=== PATIENT | female | born 1950 | race American Indian/Alaskan Native ===

== ENCOUNTER 2016-09-16 16:57 | Emergency (ER) | payer MEDICARE ==
[2016-09-16 17:20] VITALS: BP 154/81
--- NOTE | 2016-09-16 18:53 | Emergency Department Report ---
Chief Complaint: Abdominal Pain Stated Complaint: PAIN ON RIGHT SIDE Time Seen by Provider: 09/16/16 18:42 - HPI History of Present Illness: A 5-year-old female comes in for complaint of right lower abdominal pain and pelvic area that radiates to her back and legs with movement and this started on Saturday. Patient reports that she was picking up heavy dog food and that the only thing she can think of that may have caused this discomfort. Patient reports she was able to go to her rest of her shopping but the next day by accident evening path when she started having some pressure and pain in her right lower quadrant. Patient reports that she lay down she took some pain medicine pains decreased since decided the next morning she woke up pain was back. Patient even tried taking a hot shower which did not help either. - Exam Vital Signs: Vital Signs 09/16/16 17:16 Temperature 98.1 F Pulse Rate 80 Respiratory 17 Rate Blood Pressure 154/81 O2 Sat by Pulse 99 Oximetry Physical Exam: Patient is alert and oriented 3. Right lower quadrant tenderness with deep palpation patient has CVA tenderness on the right side. Extremities there is no edema noted. MSE screening note: Focused history and physical exam performed. Due to findings the following was ordered: CBC BMP urinalysis is been ordered. ED Disposition for MSE Condition: Stable Instructions: Abdominal Pain (ED)
[2016-09-16 19:52] LABS: Hematocrit 39.7 % (30.3-42.9); Hemoglobin 13.3 gm/dl (10.1-14.3); Mean Corpuscular HGB Conc 33 % (30-34); Mean Corpuscular Hemoglobin 27 pg (28-32); Mean Corpuscular Volume 80 fl (79-97); Platelet Count 188 K/mm3 (140-440); Red Blood Count 4.95 M/mm3 (3.65-5.03); Red Cell Distribution Width 16.8 % (13.2-15.2); White Blood Count 8.2 K/mm3 (4.5-11.0)
[2016-09-16 19:52] LABS: BUN/Creatinine Ratio 8.46; Chloride 101.1 mmol/L (98-107); Potassium 4.5 mmol/L (3.6-5.0)
--- NOTE | 2016-09-17 00:33 | Emergency Department Report ---
ED Abdominal Pain HPI - General Chief Complaint: Abdominal Pain Stated Complaint: PAIN ON RIGHT SIDE Time Seen by Provider: 09/16/16 18:42 Source: patient Mode of arrival: Ambulatory Limitations: No Limitations - History of Present Illness Initial Comments: 65-year-old female presents to the emergency department complaining of right sided abdominal pain for the past 2 days. Patient reports onset of pain after lifting heavy boxes of dog food after she went shopping. Patient describes aching pain that radiates around to her right lower back. Pain is worse with movement. She denies associated nausea, vomiting, diarrhea, dysuria, or hematuria. There are no other complaints. MD Complaint: abdominal pain -: Gradual, days(s) (2) Location: RLQ Radiation: back Migration to: no migration Severity scale (0 -10): 6 Quality: aching Consistency: constant Improves With: nothing Worsens With: movement Associated Symptoms: denies other symptoms - Related Data Home Medications Medication Instructions Recorded Confirmed Last Taken Aspirin [Aspirin TAB] 325 mg PO QDAY 05/11/13 08/18/15 1 Day Ago Clopidogrel [Plavix] 75 mg PO QDAY 05/11/13 08/18/15 1 Day Ago Insulin NPH, Human [NovoLIN N] 15 units SQ QAM 05/11/13 08/18/15 1 Day Ago Loratadine [Claritin RAPDIS] 10 mg PO QDAY 05/11/13 08/18/15 1 Day Ago Metoprolol [Lopressor TAB] 50 mg PO BID 05/11/13 08/18/15 1 Day Ago Sitagliptin Phosphate [Januvia] 50 mg PO QAM 05/11/13 08/18/15 1 Day Ago Insulin NPH, Human [NovoLIN N] 10 unit SQ QPM 08/18/15 08/18/15 1 Day Ago Lisinopril [Zestril TAB] 40 mg PO QDAY 08/18/15 08/18/15 1 Day Ago Previous Rx's Medication Instructions Recorded Last Taken Type HYDROcodone/APAP 5-325 [[place] 1 each PO Q6HR PRN #14 tablet 09/17/16 Unknown Rx 5/325] Nitrofurantoin [place]/M-Cryst 100 mg PO Q12HR #14 capsule 09/17/16 Unknown Rx [Macrobid CAP] Allergies Allergy/AdvReac Type Severity Reaction Status Date / Time atorvastatin calcium AdvReac Nausea Verified 09/16/16 17:12 [From Lipitor] rosuvastatin calcium AdvReac Nausea Verified 09/16/16 17:12 [From Crestor] ED Review of Systems ROS: Stated complaint: PAIN ON RIGHT SIDE Other details as noted in HPI Comment: All other systems reviewed and negative Gastrointestinal: abdominal pain ED Past Medical Hx - Past Medical History Previous Medical History?: Yes Hx Hypertension: Yes Hx CVA: No Hx Heart Attack/AMI: Yes Hx Congestive Heart Failure: Yes Hx Diabetes: Yes Hx Deep Vein Thrombosis: No Hx Pulmonary Embolism: No Hx GERD: Yes Hx Liver Disease: No Hx Renal Disease: No Hx Sickle Cell Disease: No Hx Arthritis: Yes Hx Headaches / Migraines: No Hx Seizures: No Hx Kidney Stones: No Hx Psychiatric Treatment: No Hx Asthma: Yes Hx COPD: Yes Hx Tuberculosis: No Hx Dementia: No Hx HIV: No Additional medical history: coronary artery disease - Surgical History Past Surgical History?: Yes Hx Coronary Stent: Yes (x1) Hx Open Heart Surgery: Yes (2013) Additional Surgical History: hysterectomy. bilateral hip replacement - Family History Family history: no significant - Social History Smoking Status: Never Smoker Substance Use Type: None - Medications Home Medications: Home Medications Medication Instructions Recorded Confirmed Last Taken Type Aspirin [Aspirin TAB] 325 mg PO QDAY 05/11/13 08/18/15 1 Day Ago History Clopidogrel [Plavix] 75 mg PO QDAY 05/11/13 08/18/15 1 Day Ago History Insulin NPH, Human [NovoLIN N] 15 units SQ QAM 05/11/13 08/18/15 1 Day Ago History Loratadine [Claritin RAPDIS] 10 mg PO QDAY 05/11/13 08/18/15 1 Day Ago History Metoprolol [Lopressor TAB] 50 mg PO BID 05/11/13 08/18/15 1 Day Ago History Sitagliptin Phosphate [Januvia] 50 mg PO QAM 05/11/13 08/18/15 1 Day Ago History Insulin NPH, Human [NovoLIN N] 10 unit SQ QPM 08/18/15 08/18/15 1 Day Ago History Lisinopril [Zestril TAB] 40 mg PO QDAY 08/18/15 08/18/15 1 Day Ago History HYDROcodone/APAP 5-325 [[place] 1 each PO Q6HR PRN #14 tablet 09/17/16 Unknown Rx 5/325] Nitrofurantoin [place]/M-Cryst 100 mg PO Q12HR #14 capsule 09/17/16 Unknown Rx [Macrobid CAP] ED Physical Exam - General Limitations: No Limitations General appearance: alert, in no apparent distress - Head Head exam: Present: atraumatic, normocephalic - Eye Eye exam: Present: normal appearance, PERRL, EOMI - ENT ENT exam: Present: normal exam, normal orophraynx, mucous membranes moist - Neck Neck exam: Present: normal inspection, full ROM. Absent: tenderness - Respiratory Respiratory exam: Present: normal lung sounds bilaterally. Absent: respiratory distress - Cardiovascular Cardiovascular Exam: Present: regular rate, normal rhythm, normal heart sounds - GI/Abdominal GI/Abdominal exam: Present: soft, tenderness (Mild tenderness to palpation in the right lower, lateral abdomen. No tenderness over McBurney's point.), normal bowel sounds. Absent: distended, guarding, rebound - Extremities Exam Extremities exam: Present: normal inspection, full ROM. Absent: tenderness - Back Exam Back exam: Present: normal inspection, full ROM. Absent: tenderness - Neurological Exam Neurological exam: Present: alert, oriented X3. Absent: motor sensory deficit - Skin Skin exam: Present: warm, dry, intact ED Course Vital Signs 09/16/16 17:16 Temperature 98.1 F Pulse Rate 80 Respiratory 17 Rate Blood Pressure 154/81 O2 Sat by Pulse 99 Oximetry ED Medical Decision Making - Lab Data Result diagrams: 09/16/16 19:18 09/16/16 19:14 - Medical Decision Making Lab results reviewed and discussed with the patient. Patient will be discharged home with prescriptions for pain medication and oral anti-biotics. - Differential Diagnosis abdominal wall strain Critical care attestation.: If time is entered above; I have spent that time in minutes in the direct care of this critically ill patient, excluding procedure time. ED Disposition Clinical Impression: Abdominal wall strain Qualifiers: Encounter type: initial encounter Qualified Code(s): S39.011A - Strain of muscle, fascia and tendon of abdomen, initial encounter UTI (urinary tract infection) Qualifiers: Urinary tract infection type: acute cystitis Hematuria presence: without hematuria Qualified Code(s): N30.00 - Acute cystitis without hematuria Disposition: DISCHARGED TO HOME OR SELFCARE Is pt being admited?: No Condition: Stable Instructions: Abdominal Pain (ED) Prescriptions: Nitrofurantoin [place]/M-Cryst [Macrobid CAP] 100 mg PO Q12HR #14 capsule HYDROcodone/APAP 5-325 [[place] 5/325] 1 each PO Q6HR PRN #14 tablet PRN Reason: Pain Referrals: PRIMARY CARE, [Primary Care Provider] - 3-5 Days Time of Disposition: 01:43
[2016-09-17 01:26] LABS: Bilirubin,Urine NEG (Negative); Blood,Urine MOD (Negative); Ketones,Urine NEG (Negative); Leukocyte Esterase,Urine LG (Negative); Nitrite,Urine NEG (Negative)
== END 2016-09-17 02:00 | disposition home or self-care (01) ==
LOC: ED 16:57
DX: S39.011A Strain of muscle, fascia and tendon of abdomen, initial encounter (principal); N30.00 Acute cystitis without hematuria; I10 Essential (primary) hypertension; I25.2 Old myocardial infarction; I50.9 Heart failure, unspecified; E11.9 Type 2 diabetes mellitus without complications; J45.909 Unspecified asthma, uncomplicated; K21.9 Gastro-esophageal reflux disease without esophagitis; M19.90 Unspecified osteoarthritis, unspecified site; Z88.8 Allergy status to other drugs, medicaments and biological substances; Z79.82 Long term (current) use of aspirin; Z79.4 Long term (current) use of insulin; X58.XXXA Exposure to other specified factors, initial encounter; Y93.89 Activity, other specified; Y99.9 Unspecified external cause status; Y92.9 Unspecified place or not applicable
CPT/HCPCS: 36415; 80048; 81001; 85027; 99283

== ENCOUNTER 2019-07-04 13:00 | Emergency (ER) | payer MEDICARE, OTHER ==
[2019-07-04 13:09] VITALS: BP 141/54
--- NOTE | 2019-07-04 13:13 | Event Note ---
ED Screening Note Date of service: 07/04/19 Time: 13:08 ED Screening Note: This is a 68 y.o. F. that presents to the ER with right foot swelling and pain for 1 day. PMH DM2, CAD, CHF, COPD, HTN Denies injury This initial assessment/diagnostic orders/clinical plan/treatment(s) is/are subject to change based on patients health status, clinical progression and re- assessment by fellow clinical providers in the ED. Further treatment and workup at subsequent clinical providers discretion. Patient/guardian urged not to elope from the ED as their condition may be serious if not clinically assessed and managed. Initial orders include: XR of right foot
--- NOTE | 2019-07-04 13:57 | XRay Report ---
Right foot-3 views INDICATION: swelling and pain. COMPARISON: None. IMPRESSION: Generalized soft tissue swelling about the foot, especially the dorsum. No acute fractur e. 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 Mild great toe MTP DJ D as well. Signer Name: Partha Domingo MD Signed: 07/04/2019 1:53 PM Workstation Name: [employer] ([place])[id number]
--- NOTE | 2019-07-04 15:21 | Emergency Department Report ---
ED Lower Extremity HPI - General Chief Complaint: Extremity Problem,Nontraumatic Stated Complaint: (R) FOOT SWOLLEN Time Seen by Provider: 07/04/19 13:08 Source: patient Mode of arrival: Ambulatory Limitations: No Limitations - History of Present Illness Initial Comments: Pt reports acute onset of R foot pain and swelling yesterday w/o injury. Denies any systemic symptoms. Complaint: foot injury -: Sudden, days(s) (1) Injury: Foot: Right Type of Injury: unknown Place: home Severity: moderate Severity scale (0 -10): 6 Improves With: immobilization Worsens With: weight bearing Associated Symptoms: swelling. denies: numbness - Related Data Home Medications Medication Instructions Recorded Confirmed Last Taken Aspirin 325 mg PO QDAY 05/11/13 09/29/16 09/29/16 Clopidogrel [Plavix] 75 mg PO QDAY 05/11/13 09/29/16 09/29/16 Insulin NPH, Human [NovoLIN N] 20 units SQ QAM 05/11/13 08/18/15 09/29/16 Metoprolol [Lopressor TAB] 50 mg PO BID 05/11/13 09/29/16 09/29/16 Insulin NPH, Human [NovoLIN N] 20 unit SQ QPM 08/18/15 08/18/15 09/28/16 Furosemide [Lasix TAB] 40 mg PO QDAY 09/29/16 09/29/16 09/29/16 Pantoprazole [Protonix TAB] 40 mg PO QDAY 09/29/16 09/29/16 09/29/16 Sitagliptin Phosphate [Januvia] 100 mg PO DAILY 09/29/16 09/29/16 09/29/16 Ubidecarenone [Co Q-10] 300 mg PO DAILY 09/29/16 09/29/16 09/29/16 Previous Rx's Medication Instructions Recorded Last Taken Type Loratadine [Claritin] 10 mg PO QDAY tablet 10/01/16 Unknown Rx Losartan [Cozaar] 25 mg PO QDAY #30 tablet 10/01/16 Unknown Rx Acetaminophen/Codeine [Tylenol 1 tab PO Q6H PRN #12 tab 07/04/19 Unknown Rx /Codeine # 3 tab] cephALEXin [Keflex] 500 mg PO Q6HR #40 capsule 07/04/19 Unknown Rx dexAMETHasone [Dexamethasone] 4 mg PO BID #10 tablet 07/04/19 Unknown Rx Allergies Allergy/AdvReac Type Severity Reaction Status Date / Time atorvastatin calcium AdvReac Nausea Verified 09/16/16 17:12 [From Lipitor] rosuvastatin calcium AdvReac Nausea Verified 09/16/16 17:12 [From Crestor] ED Review of Systems ROS: Stated complaint: (R) FOOT SWOLLEN Other details as noted in HPI Comment: All other systems reviewed and negative Musculoskeletal: as per HPI ED Past Medical Hx - Past Medical History Previous Medical History?: Yes Hx Hypertension: Yes Hx CVA: No Hx Heart Attack/AMI: Yes Hx Congestive Heart Failure: Yes Hx Diabetes: Yes Hx Deep Vein Thrombosis: No Hx Pulmonary Embolism: No Hx GERD: Yes Hx Liver Disease: No Hx Renal Disease: No Hx Sickle Cell Disease: No Hx Arthritis: Yes Hx Headaches / Migraines: No Hx Seizures: No Hx Kidney Stones: No Hx Psychiatric Treatment: No Hx Asthma: Yes Hx COPD: Yes Hx Tuberculosis: No Hx Dementia: No Hx HIV: No Additional medical history: coronary artery disease - Surgical History Past Surgical History?: Yes Hx Coronary Stent: Yes (x1) Hx Open Heart Surgery: Yes (2013) Additional Surgical History: hysterectomy. bilateral hip replacement - Social History Smoking Status: Never Smoker Substance Use Type: None - Medications Home Medications: Home Medications Medication Instructions Recorded Confirmed Last Taken Type Aspirin 325 mg PO QDAY 05/11/13 09/29/16 09/29/16 History Clopidogrel [Plavix] 75 mg PO QDAY 05/11/13 09/29/16 09/29/16 History Insulin NPH, Human [NovoLIN N] 20 units SQ QAM 05/11/13 08/18/15 09/29/16 History Metoprolol [Lopressor TAB] 50 mg PO BID 05/11/13 09/29/16 09/29/16 History Insulin NPH, Human [NovoLIN N] 20 unit SQ QPM 08/18/15 08/18/15 09/28/16 History Furosemide [Lasix TAB] 40 mg PO QDAY 09/29/16 09/29/16 09/29/16 History Pantoprazole [Protonix TAB] 40 mg PO QDAY 09/29/16 09/29/16 09/29/16 History Sitagliptin Phosphate [Januvia] 100 mg PO DAILY 09/29/16 09/29/16 09/29/16 History Ubidecarenone [Co Q-10] 300 mg PO DAILY 09/29/16 09/29/16 09/29/16 History Loratadine [Claritin] 10 mg PO QDAY tablet 10/01/16 Unknown Rx Losartan [Cozaar] 25 mg PO QDAY #30 tablet 10/01/16 Unknown Rx Acetaminophen/Codeine [Tylenol 1 tab PO Q6H PRN #12 tab 07/04/19 Unknown Rx /Codeine # 3 tab] cephALEXin [Keflex] 500 mg PO Q6HR #40 capsule 07/04/19 Unknown Rx dexAMETHasone [Dexamethasone] 4 mg PO BID #10 tablet 07/04/19 Unknown Rx ED Physical Exam - General Limitations: No Limitations General appearance: alert, in no apparent distress - Head Head exam: Present: atraumatic, normocephalic - Eye Eye exam: Present: normal appearance - ENT ENT exam: Present: mucous membranes moist - Neck Neck exam: Present: normal inspection - Respiratory Respiratory exam: Absent: respiratory distress - Extremities Exam Extremities exam: Present: other (dorsal soft tissue swelling, warmth, mild erythema to the R foot. No ulcerations noted. No drainage. Normal pedal pulse. ) - Back Exam Back exam: Present: normal inspection - Neurological Exam Neurological exam: Present: alert, oriented X3 - Psychiatric Psychiatric exam: Present: normal affect, normal mood - Skin Skin exam: Present: warm, dry, intact, normal color. Absent: rash ED Course Vital Signs 07/04/19 13:07 Temperature 97.7 F Pulse Rate 60 Respiratory 22 Rate Blood Pressure 141/54 [Left] O2 Sat by Pulse 100 Oximetry ED Lower Extremity MDM - Medical Decision Making Pt with foot pain and swelling since yesterday Exam shows edema, mild erythema, warmth Consider gout vs cellulitis. Nontoxic in appearance, no signs to suggest a necrotizing fasciitis. No fracture on imaging Recommend treatment with steroid, abx with close glucose monitoring (current a1C of 6.7) and close OP f/u with PCP - Differential Diagnosis gout, cellulitis, abscess, sprain Critical care attestation.: If time is entered above; I have spent that time in minutes in the direct care of this critically ill patient, excluding procedure time. ED Disposition Clinical Impression: Foot swelling Disposition: - TO HOME OR SELFCARE Is pt being admited?: No Condition: Good Instructions: Acute Gouty Arthritis (ED), Cellulitis (ED) Prescriptions: dexAMETHasone [Dexamethasone] 4 mg PO BID #10 tablet cephALEXin [Keflex] 500 mg PO Q6HR #40 capsule Acetaminophen/Codeine [Tylenol /Codeine # 3 tab] 1 tab PO Q6H PRN #12 tab PRN Reason: Pain , Severe (7-10) Referrals: PRIMARY CARE, [Primary Care Provider] - 3-5 Days Time of Disposition: 15:30
== END 2019-07-04 15:59 | disposition home or self-care (01) ==
LOC: ED 13:00
DX: R60.0 Localized edema (principal); I11.0 Hypertensive heart disease with heart failure; I50.9 Heart failure, unspecified; E11.9 Type 2 diabetes mellitus without complications; K21.9 Gastro-esophageal reflux disease without esophagitis; M19.90 Unspecified osteoarthritis, unspecified site; J44.9 Chronic obstructive pulmonary disease, unspecified; Z95.1 Presence of aortocoronary bypass graft; Z90.710 Acquired absence of both cervix and uterus; Z96.643 Presence of artificial hip joint, bilateral; Z79.82 Long term (current) use of aspirin; Z79.4 Long term (current) use of insulin; Z79.899 Other long term (current) drug therapy; Z88.8 Allergy status to other drugs, medicaments and biological substances